=== PATIENT | female | born 2005 | race Caucasian/White ===

== ENCOUNTER 2024-07-11 10:27 | Emergency (ER) | payer BC, SELFPAY ==
[2024-07-11 10:39] VITALS: BP 143/85; PULSE 73; RESP 20; TEMP 35.8; O2SAT 97; BMI 31.1
[2024-07-11 11:08] LABS: Appearance Urine Clear (Clear); Bilirubin Urine Negative (Negative); Blood Urine 1+ (Negative); Color Urine Yellow (Yellow); Glucose Urine Negative (Negative); Ketones Urine Negative (Negative); Leukocyte Esterase Urine Negative (Negative); Nitrite Urine Negative (Negative); Protein Urine Negative (Negative); Urobilinogen Urine 0.2 (0.2-1.0)
[2024-07-11 11:11] LABS: Basophils Absolute Auto 0.04 K/uL (0.00-0.30); Basophils Percent Auto 0.5 % (0.0-3.0); Eosinophils Absolute Auto 0.14 K/uL (0.00-0.50); Eosinophils Percent Auto 1.6 % (0.0-7.0); Hematocrit 42.3 % (33.0-51.0); Hemoglobin* 13.7 gm/dL (12.0-16.0); Immature Granulocytes Abs Auto 0.01 K/uL (0.00-0.30); Immature Granulocytes Pct Auto 0.1 %; Lymphocytes Absolute Auto 1.88 K/uL (0.90-2.90); Lymphocytes Percent Auto 21.8 % (20-44); Mean Corpuscular HGB Conc 32 gm/dL (32-36); Mean Corpuscular Hemoglobin 29 pg (26-34); Mean Corpuscular Volume 89 fL (80-100); Monocytes Percent Auto 4.4 % (0.0-11.0); Neutrophils Absolute Auto 6.19 K/uL (1.7-7.0); Neutrophils Percent Auto 71.6 % (42.0-72.0); Platelet Count* 419 K/uL (140-440); RDW Coefficient of Variation % 12.9 % (11.5-15.5); Red Blood Count 4.76 m/uL (4.00-5.20); White Blood Count* 8.64 K/uL (4.50-11.00)
[2024-07-11 11:18] LABS: Squamous Epithelial Cell Urine Few (None-Few); WBC Urine 0-2 (0-5)
[2024-07-11 11:19] LABS: Amorphous Sediment Urine Few; Bacteria Urine Few
[2024-07-11 11:19] LABS: Slide Review Reflex No
--- NOTE | 2024-07-11 11:24 | ED_ITS ---
HPI - General Adult General Date Seen: 07/11/24 Chief complaint: Abdominal Pain Stated complaint: Abdominal pain Time Seen by Provider: 07/11/24 10:46 History of Present Illness HPI narrative: 19 yo F referred to the ER today from [facility] for an episode of right lower quadrant abdominal pain. She has been having pain for about 3 days, since Wednesday night. She went to the [facility] this morning and was tender in the right lower quadrant so they advised evaluation here in the ER. Noted she arrives, her pain is actually dramatically improved, but not completely resolved. History from the patient is that she does have episodes of occasional epigastric pain dating back for years. She had had checkups with her primary care provider and in the past had been told that she might be taking too much ibuprofen. It does not sound like she has ever had any EGD and does not carry a formal diagnosis of inflammatory bowel disease or Crohn's. For the past couple months she has been having episodes where she will have days of fairly intense, crampy pain across her upper abdomen. It has been happening for the past couple of weeks as well. She had a fairly intense episode of pain on Wednesday evening that began after di nner and lasted until she went to bed at 11 or midnight. He was mostly across her upper abdomen and perhaps more intense on the right than on the left. She was able to sleep. Symptoms came back again Wednesday morning, sometime after breakfast and then lasted for while in morning and went away. They came back again Wednesday evening. Pain was fairly intense but intermittent throughout the day yesterday on Wednesday. She also started to run a low-grade fever. She is not nauseous. No vomiting. Bowel movements have been normal. Urination normal. Menstrual cycle more normal. She is confident she is not . She has not had any pain radiating sugar flank. Yesterday because her pain was fairly intense she made an appointment with the [facility], however, the appointment could occur tell today. She had a checkup with the doctors at [facility]. She says today she is actually doing much better her pain is almost completely gone. When they examined her, they noted that she had a low-grade temperature and that she was tender in the right lower quadrant so they sent her here to the ER. Although she was tender in the right lower quadrant this morning, her history is that she predominantly has episodes of upper pain, not much lower pain. Related Data Home Medications ?Medication ?Instructions ?Recorded ?Confirmed cetirizine .ROUTE 07/11/24 desogestrel-ethinyl estradiol .ROUTE 07/11/24 venlafaxine PO 07/11/24 Allergies Allergy/AdvReac Type Severity Reaction Status Date / Time No Known Drug Allergies Allergy Verified 07/11/24 10:42 Exam Narrative: Exam Narrative: Constitutional: Appears well-developed and well-nourished. Alert. Conversant. Non toxic. HENT: Head: Atraumatic. Nose: Nose normal. Mouth/Throat: Oral mucosa is clear and moist. no trismus. Pharynx normal. Tonsils symmetric. No tonsillar enlargement, erythema, or exudate. Eyes: Conjunctivae normal. EOM normal. Pupils equal, round, and reactive to light. No scleral icterus. Neck: Normal range of motion. Neck supple. No tracheal deviation present. Cardiovascular: Normal rate, regular rhythm. No gallop. No friction rub. No murmur heard. Symmetric radial artery pulses Pulmonary/Chest: Effort normal. No stridor. No respiratory distress. No wheezes. No rales. No rhonchi . No tenderness. Abdominal: Soft. Bowel sounds normal. No distension. No mass. No HSM. No Valderrama sign. No right upper quadrant, epigastric, or left upper quadrant tenderness. Mild right lower quadrant and mild epigastric/left lower quadrant tenderness. No rebound. No guarding. No CVA tenderness. Musculoskeletal: RUE: Normal range of motion. No tenderness. No deformity LUE: Normal range of motion. No tenderness. No deformity RLE: Normal range of motion. No edema. No tenderness. No deformity LLE: Normal range of motion. No edema. No tenderness. No deformity Neurological: Alert and oriented to person, place, and time. Normal strength. CN II-VII intact. No sensory deficit. GCS eye subscore is 4. GCS verbal subscore is 5. GCS motor subscore is 6. Normal coordination Skin: Skin is warm and dry. No rash noted. No pallor. Normal capillary refill. Psychiatric: Normal mood. Normal affect. Const: Vital Signs, click to edit/add: Vital Signs - 24 hr 07/11/24 10:39 Temperature 96.5 F L Pulse Rate [Pulse Oximeter] 73 Respiratory Rate 20 Blood Pressure [Ri ght Upper Arm] 143/85 H Pulse Oximetry 97 Oxygen Delivery Me thod Room Air Course Vital Signs Vital signs: Initial Vital Signs Temperature 96.5 F L 07/11/24 10:39 Temperature Source Temporal Artery Scan 07/11/24 10:39 Pulse Rate 73 07/11/24 10:39 Respiratory Rate 20 07/11/24 10:39 Blood Pressure 143/85 H 07/11/24 10:39 Blood Pressure Mean 104 07/11/24 10:39 Blood Pressure Position Sitting 07/11/24 10:39 Pulse Oximetry 97 07/11/24 10:39 Oxygen Delivery Method Room Air 07/11/24 10:39 Vital Signs Temperature 96.5 F L 07/11/24 10:39 Pulse Rate 73 07/11/24 10:39 Respiratory Rate 20 07/11/24 10:39 Blood Pressure 143/85 H 07/11/24 10:39 Pulse Oximetry 97 07/11/24 10:39 Oxygen Delivery Method Room Air 07/11/24 10:39 Temperature 96.5 F L 07/11/24 10:39 Pulse Rate 73 07/11/24 10:39 Respiratory Rate 20 07/11/24 10:39 Blood Pressure 143/85 H 07/11/24 10:39 Pulse Oximetry 97 07/11/24 10:39 Oxygen Delivery Method Room Air 07/11/24 10:39 Medical Decision Making MDM Narrative Medical decision making narrative: Presented to the Emergency Department with right lower quadrant abdominal abdominal pain. She has actually been having episodes of upper abdominal pain off and on for the past several months, but in particular was sent here today by the [facility] because she was tender in her right lower q uadrant this morning. The differential diagnosis of abdominal pain includes: Appendicitis, biliary colic, cholecystitis, peptic ulcer disease, Cholecystitis, Diverticulitis, Pancreatitis, UTI, kidney stone, Enteritis/Colitis, inflammatory bowel disease, , gynecologic pathology, amongst many other etiologies. Laboratory testing does not reveal a cause for the patient's pain. CT Imaging i s noted to be normal. The exact etiology of the abdominal pain is not clear at this time. No life threatening cause or need for emergent surgery or hospital admission is detected today. The patient was advised that if symptoms do not completely resolve within another 24-48 hours re-evaluation with primary care or return to the ED is indicated. The patient also understands that if they worsen, they should return to the ER right away. I discussed the uncertainty about the diagnosis and answered the patient's questions. Abdominal pain return precautions discussed. Lab Data Labs: Lab Results 07/11/24 07/11/24 07/11/24 Range/Units 11:00 11:05 11:23 WBC 8.64 (4.50-11.00) K/uL RBC 4.76 (4.00-5.20) m/uL Hgb 13.7 (12.0-16.0) gm/dL Hct 42.3 (33.0-51.0) % MCV 89 (80-100) fL MCH 29 (26-34) pg MCHC 32 (32-36) gm/dL RDW Coeff of Carl 12.9 (11.5-15.5) % Plt Count 419 (140-440) K/uL Neut % (Auto) 71.6 (42.0-72.0) % Lymph % (Auto) 21.8 (20-44) % [place] % (Auto) 4.4 (0.0-11.0) % Eos % (Auto) 1.6 (0.0-7.0) % Baso % (Auto) 0.5 (0.0-3.0) % Neut # (Auto) 6.19 (1.7-7.0) K/uL Lymph # (Auto) 1.88 (0.90-2.90) K/uL [place] # (Auto) 0.40 (0.00-0.90) K/UL Eos # (Auto) 0.14 (0.00-0.50) K/uL Baso # (Auto) 0.04 (0.00-0.30) K/uL Abs Immat Gran (auto) 0.01 (0.00-0.30) K/uL Imm/Tot Granulo (auto) 0.1 % Sodium 135 (135-149) mmol/L Potassium 3.9 (3.6-5.1) mmol/L Chloride 102 (96-114) mmol/L Carbon Dioxide 22 (20-32) mmol/L Anion Gap 11 (7-15) mEq/L BUN 11 (5-24) mg/dL Creatinine 0.6 (0.5-1.5) mg/dL Estimated Creat Clear 117.31 Estimated GFR 131 ml/min Glucose 92 (60-115) mg/dL Calcium 9.3 (8.4-10.6) mg/dL Total Bilirubin 0.3 (0.1-1.5) mg/dL AST 22 (12-35) U/L ALT 22 (4-35) U/L Alkaline Phosphatase 66 (40-150) U/L Total Protein 7.5 (6.0-8.3) g/dL Albumin 4.3 (3.3-5.0) g/dL Lipase 44 (23-300) U/L Urine Color Yellow (Yellow) Urine Appearance Clear (Clear) Urine pH 7.0 (5.0-8.5) Ur Specific [place] 1.020 (1.000-1.030) Urine Protein Negative (Negative) Urine Glucose (UA) Negative (Negative) Urine Ketones Negative (Negative) Urine Blood 1+ A (Negative) Urine Nitrite Negative (Negative) Urine Bilirubin Negative (Negative) Urine Urobilinogen 0.2 (0.2-1.0) Ur Leukocyte Esterase Negative (Negative) Urine RBC 2-5 A (0-2) Urine WBC 0-2 (0-5) Ur Squamous Epith Cells Few (None-Few) Amorphous Sediment Few A (None) Urine Bacteria Few A (None) Urine HCG, Qual Negative (Negative) Lab Acknowledgement Test Added Imaging Data CT scan - abdomen: Attestation: I have reviewed the pertinent imaging results. Radiologist's impression: IMPRESSION: Moderate to severe distention of the urinary bladder, which is nonspecific. Otherwise, no acute findings in the abdomen or pelvis on this noncontrast examination. Discharge Plan Discharge Clinical Impression: Abdominal pain Patient Disposition: Home, Self-Care Condition: Stable Instructions: Abdominal Pain (ED) Additional Instructions: As we discussed, so far your workup looks reassuring , but we do not know the cause for your abdominal pain. We do not see any evidence for appendicitis, or any need for immediate surgery. Please monitor your symptoms carefully and if you have more episodes of pain or any other worsening symptoms such as fever, vomiting, bloody stools, or any other problems please come back to the emergency room right away. Even if you are getting better, please recheck with the student health service or with your regular doctor within the next couple of days for a checkup. You may need further testing such as endoscopy to look for stomach ulcers or 4th her gallbladder testing, if you have more symptom. Prescriptions: No Action venlafaxine [Effexor XR] PO cetirizine [Zyrtec] .ROUTE desogestrel-ethinyl estradiol [Apri] .ROUTE Follow Up/Referrals: Provider,Not a Local [Primary Care Provider] - Stand Alone Forms: [employer] Info Instructions
[2024-07-11 11:28] LABS: Albumin* 4.3 g/dL (3.3-5.0); Chloride* 102 mmol/L (96-114); Sodium* 135 mmol/L (135-149)
[2024-07-11 11:29] LABS: Potassium* 3.9 mmol/L (3.6-5.1)
[2024-07-11 11:31] LABS: Alanine Aminotransferase* 22 U/L (4-35); Alkaline Phosphatase* 66 U/L (40-150); Anion Gap 11 mEq/L (7-15); Aspartate Amino Transferase* 22 U/L (12-35); Bilirubin Total* 0.3 mg/dL (0.1-1.5); Blood Urea Nitrogen* 11 mg/dL (5-24); Calcium* 9.3 mg/dL (8.4-10.6); Carbon Dioxide* 22 mmol/L (20-32); Creatinine* 0.6 mg/dL (0.5-1.5); Est. Creatinine Clearance* 117.31; Estimated Glomerular Filt Rate 131 ml/min; Glucose* 92 mg/dL (60-115); Total Protein* 7.5 g/dL (6.0-8.3)
[2024-07-11 11:39] LABS: Ur HCG Qualitative* Negative (Negative)
[2024-07-11 12:10] LABS: Lipase* 44 U/L (23-300)
--- OUTSIDE RECORDS SUMMARY | 2024-07-11 12:42 | XMS_ITS | Clinical Summary ---
Author Organization [place] Address [address] [place] [id number] Care Team Providers Care Senior Web Services Developer Name Role Phone Zachariah Almeida Primary Care Provider Allergies Active Allergy Reactions Criticality Noted Date Comments Dust Mites 10/02/2014 Medications olopatadine HCl (PATADAY) 0.2 % SOLNIndications:Oth er chronic allergic conjunctivitis Place 1 drop into both eyes daily 1 Bottle 11 5 Active ketotifen (ZADITOR/REFRESH ANTI-ITCH) 0.025 % SOLN ophthalmic solutionIndications :Allergic conjunctivitis, bilateral Place 1 drop into both eyes 2 times daily 1 Bottle 11 7 Active Active Problems No known active problems Family History Medical History Relation Comments Glasses (<8 y/o) Brother Relation Status Comments Brother Social History Tobacco Use Types Packs/Day Years Used Date Smoking Tobacco: Never PHQ-2 Answer Date Recorded PHQ-2 Score 1 03/11/2020 Comments Unknown Sex and Gender Information Value Date Recorded Sex Assigned at Not on file 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 Gender Identity Not on file Sexual Orientation Not on file Last Filed Vital Signs Vital Sign Reading Time Taken Comments Blood Pressure - - Pulse 80 05/15/2018 4:22 PM PLYWOOD PATCHER Temperature 36.7 C (98 F) 05/15/2018 1:47 PM PLYWOOD PATCHER Respiratory Rate 16 05/15/2018 4:22 PM PLYWOOD PATCHER Oxygen Saturation 97% 05/15/2018 4:22 PM PLYWOOD PATCHER Inhaled Oxygen Concentration - - Weight 55.5 kg (122 lb 5.7 oz) 05/15/2018 1:47 P M PLYWOOD PATCHER Height - - Body Mass Index - - Plan of Treatment Health Maintenance Due Date Last Done Comments ADVANCE CARE PLANNING 2003 ANNUAL REVIEW OF HM ORDERS 2003 CHLAMYDIA SCREENING 2003 YEARLY PREVENTIVE VISIT 2006 HIV SCREENING 2018 HEPATITIS C SCREENING 2021 DTAP/TDAP/TD IMMUNIZATION (7 - Td or Tdap) 12/07/2023 12/06/2013, 09/19/2008, 05/20/2005, Additional history exists COVID-19 Vaccine ( - season) 2024 03/11/2022, 04/19/2021, 08/22/2020 INFLUENZA VACCINE (#1) 2024 3, 05/04/2022, 02/05/2021, Additional history exists PHQ-2 (once per calendar year) 2024 03/11/2020 PAP 2024 ZOSTER IMMUNIZATION (1 of 2) 2053 RSV VACCINE (1 - 1-dose 75+ series) 2078 HEPATITIS B IMMUNIZATION Completed 005, 04/24/2004, 04/24/2004, Additional history exists Pneumococcal Vaccine: Pediatrics (0 to 5 Years) and At-Risk Patients (6 to 49 Years) Aged Out 05/20/2005, 04/24/2004, 01/24/2004, Additional history exists No longer eligible based on patient's age to complete this topic HPV IMMUNIZATION Completed 03/31/2019, 11/27/2015 MENINGITIS IMMUNIZATION Completed 04/04/2020, 11/26 MENINGITIS B IMMUNIZATION Completed 12/24/2022, RSV MONOCLONAL ANTIBODY Aged Out No l onger eligible based on patient's age to complete this topic Care Teams Senior Web Services Developer Relationship Specialty Start Date End Date Juan Pablo, Zachariah [address] [id number] PCP - General 05/15/18
--- OUTSIDE RECORDS SUMMARY | 2024-07-11 12:42 | XMS_ITS | Clinical Summary ---
Author Organization [facility] Address [address] [place] [address] Care Team Providers Care Credit Card Analyst Name Role Phone Elsewhere, Pcp Primary Care Provider Unavailabl e Source Comments Patient records contain information from all sites at [facility]. For routine questions regarding patient records, call [phone] during business hours, M-F 8:00 AM - 5:00 PM Central Time. Record requests for emergency care only can be directed to [phone] at any time.[facility] Allergies Active Allergy Reactions Criticality Noted Date Comments House Dust Mite Other (see comments) 10/02/2014 Medications venlafaxine (EFFEXOR ER) 37.5 mg 24 hr tablet Take 75 mg by mouth daily. Active cetirizine (ZyrTEC) 10 mg chewable tablet Chew 10 mg daily. Active montelukast (SINGULAIR) 10 mg tablet Take 10 mg by mouth daily. Active desogestreL-eth inyl estradioL (APRI) 0.15-0.03 mg per tablet Take 1 tablet by mouth daily. Active multivitamin tablet Take 1 tablet by mouth daily. Active L.acidoph-L.bul g-B.bif-S.therm (BACID) 1 billion cell- 250 mg per tablet Take 1 tablet by mouth daily. Active B complex-vitamin (SUPER B-50) capsule Take 1 capsule by mouth daily. Active UNABLE TO FIND Take 1 each by mouth daily. Med Name: Flaxseed capsule Active cholecalciferol (Vitamin D3) 50 mcg (2,000 Unit) tablet Take 50 mcg by mouth daily. Active albuterol 90 mcg/actuation inhaler Inhale 1 puff every 6 (six) hours as needed for wheezing. Active ibuprofen (ADVIL,MOTRIN) 200 mg tablet Take 200 mg by mouth every 6 (six) hours as needed for pain. Active Social History Tobacco Use Types Packs/Day Years Used Date Smoking Tobacco: Never Tobacco Cessation:Counseling Given: Not Answered Alcohol Use Standard Drinks/Week Comments Never 0 (1 standard drink = 0.6 oz pur e alcohol) [facility] Utilities Answer Date Recorded In the past 12 months has e [employer], [employer], oil, or water [employer] threatened to shut off services in your home? No 10/17/2023 Exercise Vital Sign Answer Date Recorde d On average, how many days pe r week do you engage in moderate to strenuous exercise (like a brisk walk)? 3 days 10/17/2023 On average, how many minutes do you engage in exercise at this level? 60 min 10/17/2023 Hunger Vital Sign Answer Date Recorded Within the past 12 months, y ou worried that your food would run out before you got the money to buy more. Never true 10/17/19 Within the past 12 months, t he food you bought just didn't last and you didn't have money to get more. Never true 10/17/2023 PRAPARE - Transportation Answer Date Re corded In the past 12 months, has l ack of transportation kept you from medical appointments or from getting medications? No 06/2023 In the past 12 months, has l ack of transportation kept you from meetings, work, or from getting things needed for daily living? No 10/17/2023 Nutrition Answer Date Recorded On average, how many serving s of fruits and vegetables do you eat per day (serving size is equal to 1 cup or approximately the size of a tennis ball)? 3-5 10/17/2023 Dental Answer Date Recorded Dental: Regular Dentist Yes 10/17/19 Employment Answer Date Recorded Employment status Employed and actively working without restrictions 10/17/2023 Housing Stability Answer Date Recorded What is your living situation today? I have a [facility] place to live 10/17/2023 Comments No Sex and Gender Information Value Date Recorded Sex Assigned at Female 10/17/2023 12:24 PM CDT Legal Sex Female 4:17 PM CDT Gender Identity Female 10/17/2023 12:24 PM CDT Sexual Orientation Straight 10/17/2023 12 :24 PM CDT Last Filed Vital Signs Vital Sign Reading Time Taken Comments Blood Pressure 142/84 09/15/2023 5:00 PM CDT Pulse 82 09/15/2023 5:00 PM CDT Temperature 36.9 C (98.4 F) 09/15/2023 4:34 PM CDT Respiratory Rate 16 09/15/2023 5:00 PM CDT Oxygen Saturation 97% 09/15/2023 5:00 PM CDT Inhaled Oxygen Concentration - - Weight 74 kg (163 lb 2.3 oz) 09/15/2023 4:29 PM CDT Height - - Body Mass Index - - Plan of Treatment Health Maintenance Due Date Last Done Comments Cervical/Vaginal Cancer Screening 2003 Chlamydia and Gonorrhea Screening 2003 HIV Screening 2003 Hepatitis C Screening 2003 TB Screening during Well Chi ld Visit 2003 1 week Well Child Check-Up 2003 1 month Well Child Check-Up 2003 2 month Well Child Check-Up 2003 4 month Well Child Check-Up 2003 9 month Well Child Check-Up 02/03/2004 15 month Well Child Check-Up 08/02/2004 18 month Well Child Check-Up 11/02/2004 2 year Well Child Check-Up 05/04/2005 30 month Well Child Check-Up 11/02/2005 3 year Well Child Check-Up 05/04/2006 Well Child Check-Up Complete d in Past Year 05/04/2006 5 year Well Child Check-Up 05/04/2008 6 year Well Child Check-Up 05/04/2009 7 year Well Child Check-Up 05/04/2010 6 year Well Child Check-Up 05/04/2011 10 year Well Child Check-Up 05/04/2013 10 year Well Child Check-Up 05/04/2015 11 year Well Child Check-Up 05/04/2016 12 year Well Child Check-Up 05/04/2017 13 year Well Child Check-Up 05/04/2018 HPV Vaccines (1 - 3-dose series) 2018 15 year Well Child Check-Up 05/04/2020 16 year Well Child Check-Up 05/04/2021 17 year Well Child Check-Up 05/04/2022 DTaP,Tdap,and Td Vaccines (1 - Tdap) 2022 Hepatitis B Vaccines (1 of 3 - 19+ 3-dose series) 2022 20 year Well Child Check-Up 05/04/2023 19 year Well Child Check-Up 05/04/2024 Well Child Check-Up (WCC) 05/04/2024 Depression Screening (Annual PHQ-2) 05/17/2024 COVID-19 Vaccine Completed 05/02/2024, 03/11/2022 Influenza Vaccine Completed 05/02/2024 IPV Vaccines Aged Out No longer eligi ble based on patient's age to complete this topic Meningococcal Vaccine Aged Out No dale wayne eligible based on patient's age to complete this topic Pneumococcal vaccine (0-49 years) Aged Out No longer eligible b ased on patient's age to complete this topic Insurance [facility] [place] [address] Care Teams Credit Card Analyst Relationship Specialty Start Date End Date Elsewhere, Pcp PCP - General Internal Medicine 09/15/23
--- OUTSIDE RECORDS SUMMARY | 2024-07-11 12:42 | XMS_ITS | Encounter Summary ---
Author Organization [place] Address [address] [place] [address] Care Team Providers Care Hyperbaric Nurse Name Role Phone GodwinHannah moran Nina OD Unavailable [phone] [facility] Primary Care Provider [phone] Tori Lizama OD Unavailable [phone] Encounter Details Date Type Department Care Team (Late st Contact Info) Description 12/21/2012 Office Visit-[facility] Angelita Rivera MD [address] [facility] [address] [address] [place] [address] Social History Tobacco Use Types Packs/Day Years Used Date Smoking Tobacco: Never Assessed Comments Unknown Sex and Gender Information Value Date Recorded Sex Assigned at Not on file Legal Sex Female 4:53 AM VENDING ROUTE DRIVER Gender Identity Not on file Sexual Orientation Not on file documented as of this encounter Progress Notes * Angelita Rivera MD - 12/21/2012 9:15 AM CDT County Records Management Officer: Shima Rivera Status: Final - Signature Encounter: 2012-12-21 09:15:00.000 Type: EYE Letter December 22, 2012 RE: CHRISTEN COLEY [facility]: [id number] : 2005 Ceci Osman MD [facility] [address] [place] [address] Dear Ceci: I saw Christen in followup on December 21, 2012. She is 9-1/2 years old. Her glasses have been broken for4 months but she still wears them. They are quite crooked and occasionally she will look over the top of her glasses. She feels that her vision is good and no misalignment of her eyes is seen. She was born full term. She takes Zyrtec and vitamins, is allergic to dust and cats, and her immunizationsare up to date. Christen will be in 4th grade and reads at grade level. She lives with her grandmother, sister, great-grandfather, and occasionally her father, brother, and mother live with her. Family history is positive for her father having astigmatism and her mother and paternal grandmother havingstrabismus. Her paternal grandmother also has a history of amblyopia. Review of systems is noncontributory. Growth is normal. Christen's vision with her current glasses measured 20/20 in each eye at distance, with binocular vision measured at 20/15. Near acuity was 20/20 in each eye. No nystagmus was seen. Pupils responded normally. She has sensory fusion and excellent stereoacuity. The eyes were in good alignment. External exam, confrontation visual james, slit lamp exam, intraocular pressures, and a dilated examination of the fundi were normal. Cycloplegic refraction was +1.25 +2.00 x 90 RE and was +0.50 +4.00 x 90 LE, correcting vision to 20/20+ in each eye. In summary, Christen has a history of left amblyopia. She continues to have some asymmetry of her refractive error. I gave her a prescription for today's cycloplegic refraction, undercorrecting her hyperopia by 0.75 diopters. We look forward to seeing Christen in followup in a couple of years. Please letme know if there should be any questions regarding Christen. Sincerely, Eveline Rivera M.D. Professor, Department of Ophthalmology and Pediatrics Pediatric Ophthalmology and Adult Strabismus CGS:donna cc: [place] [id number] Job Number: [id number] Electronically signed by:Shima Rivera MD Dec 22 2012 6:57PM VENDING ROUTE DRIVER documented in this encounter Plan of Treatment Not on file documented as of this encounter Visit Diagnoses Not on filedocumented in this encounter Care Teams Hyperbaric Nurse Relationship Specialty Start Date End Date Juan Pablo, Pediatrics [address] [facility] [address] [facility] [address] [place] [address] PCP - General 05/15/18 Hannah Connelly OD Ophthalmology 12/04/15 06/13/18 Tori Lizama OD [address] [facility] [address] [place] [id number] Assigned Surgical Provider 03/31/20 documented as of this encounter
--- OUTSIDE RECORDS SUMMARY | 2024-07-11 12:42 | XMS_ITS | Encounter Summary ---
Author Organization [facility] Address [address] [facility] [place] [address] Care Team Providers Care Diffuser Operator Name Role Phone GodwinHannah moran Nina OD Unavailable [facility] Primary Care Provider [phone] CharoJett hooperth OD Unavailable [phone] Encounter Details Date Type Department Care Team (Late st Contact Info) Description 01/06/2012 Office Visit-[facility] Angelita Rivera MD [address] [place] [address] Social History Tobacco Use Types Packs/Day Years Used Date Smoking Tobacco: Never Assessed Comments Unknown Sex and Gender Information Value Date Recorded Sex Assigned at Not on file 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 She is 5 years old and has a history of amblyopia. Christen wears her glasses on a full-time basis but tends to look over the top of them as the glasses slide down (the temples are too long). No strabismus is noted and Christen is not squinting her eyes. She was born full term at approximately 6 pounds. She takes Zyrtec, vitamins, calcium, and vitamin D and is allergic to no medicines. She does have environmental allergies that include dust and cats. Christen will be in 3rd grade and reads above grade level. She receives speech therapy. She lives with her paternal grandmother, father, and sister (her brother lives with her mother in [place]). Family history is positive for her father having astigmatism. Her mother, paternal grandmother and 2nd cousin have a history of strabismus. Review of systems indicates normal growth. Christen had some abrasions related to a fall from a tree the day prior to this visit. Christen was very cooperative. Her vision with her current glasses measured 20/15- 20 in each eye at distance and was 20/20 at near. Manifest refraction was +1.00 +2.00 x 90 RE and was +0.25 +4.00 x 90 LE, correcting vision to 20/20 in each eye. No nystagmus was seen. Pupils responded normally. Christen has good stereoacuity and the eyes were in good alignment. External exam, confrontation visual james, slit lamp exam, intraocular pressures, and an undilated examination of the fundi were normal. In summary, Christen's amblyopia has improved. I gave her a prescription for today's manifest refraction and asked that her frames fit better. Followup is planned in 1 year. Please let me know if there should be any questions regarding Christen. Sincerely, Eveline Rivera M.D. 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
--- OUTSIDE RECORDS SUMMARY | 2024-07-11 12:42 | XMS_ITS | Clinical Summary ---
Author Organization [facility] Address [address] [place] [address] Phone Care Team Providers Care Wine Fermenter Name Role Phone Unavailable Primary Care Provider Unavailabl e Source Comments [employer] is fully rolled out on [facility]. Last update 10/19/08.[facility] Encounters Date Type Department Care Team Description 05/02/2024 1:40 PM PEARLER Immunization [facility] [address] [place] [address] Nurse, [facility] Vaccine Need for influenza vaccination (Primary Dx); Need for COVID-19 vaccine Discharge Disposition: Discharged to home or self care 05/02/2024 Travel from Last 3 Months Immunizations Immunization Administration Dates Next Due COVID-19 Vaccine Bivalent (PFIZER) 12 Years and Older 03/11/2022 COVID-19 Vaccine Monovalent (PFIZER-COMIRNATY) 12 Years and Older 05/02/2024 Influenza Vaccine - Trivalen t, Preservative Free (6 Months - Adult) 05/02/2024 Social History Tobacco Use Types Packs/Day Years Used Date Smoking Tobacco: Never Assessed Comments Unknown Sex and Gender Information Value Date Recorded Sex Assigned at Not on file Legal Sex Female 9:49 AM CDT Gender Identity Not on file Sexual Orientation Not on file Primary [place] Affiliation No [place] Affiliation Plan of Treatment Health Maintenance Due Date Last Done Comments Dental Oral Exam 2003 Dental Prophylaxis 2003 Dental X-Ray: Bitewings 2003 Well Child Check 2006 Chlamydia & Gonorrhea Screening 2015 Periodontal Maintenance 2017 HIV Screening 2018 PREVENTATIVE VISIT 2021 HEALTH MAINTENANCE PROTOCOL 2022 Cervical Cancer Screening Age 21-29 2024 Imm: DTaP/Tdap (8 - Td or Tdap) 12/09/2033 12/10/2023, 12/06/2013, 09/19/2008, Additional history exists Imm: Zoster (1 of 2) 2053 Imm: HepB Completed 10/10/2004, 01/2004, 01/24/2004, Additional history exists Imm: Hib Completed 05/20/2005, 01/2004, 01/24/2004, Additional history exists Imm: Pneumonia Peds or At-Risk less than 50 years Aged Out 05/20/2005, 04/24/2004, 01/24/2004, Additional history exists No longer eligible based on patient's age to complete this topic Imm: HepA Completed 10/28/2009, 09/19/2008 Imm: HPV Completed 03/31/2019, 11/27/2015 Imm: Meningitis Completed 04/04/2020, 11/27/2015 Imm: COVID-19 Completed 05/02/2024, 02/15, 04/19/2021, Additional history exists Imm: Flu Completed 05/02/2024, 04/16, 02/05/2021, Additional history exists Insurance [facility]
--- OUTSIDE RECORDS SUMMARY | 2024-07-11 12:42 | XMS_ITS | Referral Summary ---
Author Organization [facility] Address [address] [place] [phone] Phone Care Team Providers Care Jail Guard Name Role Phone Unavailable Primary Care Provider Unavailabl e Source Comments [employer] is fully rolled out on [employer]. Last update 10/19/08.[facility] Encounters Date Type Department Care Team Description 05/02/2024 Travel 05/02/2024 1:40 PM DIRECTOR BIOSTATISTICS Immunization [facility] [address] [place] [phone] Nurse, [facility] Vaccine Need for influenza vaccination (Primary Dx); Need for COVID-19 vaccine Discharge Disposition: Discharged to home or self care from Last 3 Months Immunizations Immunization Administration [...] file Sexual Orientation Not on file Primary [place] Affiliation No [place] Affiliation Plan of Treatment Not on file Insurance [facility]
== END 2024-07-11 14:19 | disposition home or self-care (01) ==
PROVIDERS: Family Medicine; Emergency Provider Emergency Medicine
DX: R10.31 Right lower quadrant pain (principal)
CPT/HCPCS: 36415; 74176; 80053; 81001; 81025; 83690; 85025; 87086; 99283; 99284